=== PATIENT | female | born 1980 | race Caucasian/White ===

== ENCOUNTER → 2022-12-09 11:29 | Outpatient (CLI) | payer BC, SELFPAY ==
--- NOTE | ~2022-12-09 | MM_ITS ---
EXAMINATION: MM screening [facility] BI w samara HISTORY: Screening mammogram TECHNIQUE: Craniocaudal and mediolateral oblique 3-D tomosynthesis images were obtained and synthetic 2-D images were generated. CAD analysis was submitted and interpreted. COMPARISON: None, baseline BREAST PARENCHYMAL COMPOSITION: The breasts are extremely dense, which lowers the sensitivity of mamm ography. FINDINGS: There are obscured masses bilaterally in the upper outer quadrants of the breasts. No suspi cious calcification or architectural distortion are identified. IMPRESSION: 1. Obscured bilateral breast masses. 2. Additional mammographic views and possible breast ultrasound are recommended. BI-RADS Category 0: Incomplete: Needs additional imaging evaluation. Reviewed, dictated and finalized at location A. 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 Obscured bilateral breast masses. 2. Additional mammographic views and possible breast ultrasound are recommended . BI-RADS Category 0: Incomplete: Needs additional imaging evaluation.
== END ==
PROVIDERS: PCP Family Medicine; Visit Provider Obstetrics & Gynecology
DX: Z12.31 Encounter for screening mammogram for malignant neoplasm of breast (principal); N63.20 Unspecified lump in the left breast, unspecified quadrant; N63.10 Unspecified lump in the right breast, unspecified quadrant
CPT/HCPCS: 77063; 77067

== ENCOUNTER → 2023-01-03 08:20 | Outpatient (CLI) | payer BC, SELFPAY ==
--- NOTE | ~2023-01-03 | MMUS_ITS ---
EXAMINATION: MM diagnostic [facility] BI w samara, US breast BI complete HISTORY: Scattered bilateral breast masses reported on 12/09/2022 bilateral screening mammogram examination TECHNIQUE: Additional 3-D tomosynthesis images of both breasts were performed and synthetic 2-D image s were generated. CAD analysis was submitted and interpreted. High resolution complete bilateral [address]isa st ultrasound examination including all 4 quadrants and subareolar areas was performed. COMPARISON: 12/09/2022 bilateral screening mammogram BREAST PARENCHYMAL COMPOSITION: The breasts are extremely dense, which lowers the sensitivity of mamm ography. FINDINGS: MAMMOGRAPHIC FINDINGS: Circumscribed low-density approximately 3 cm mass is noted centimeters slightly left of mid sagittal plane in the upper outer quadrant of the left breast posteriorly. Circumscribed approximately 1.4 cm mass is noted posteriorly in the outer mid right breast. The extremely dense stroma may obscure additional breast masses. Bilateral complete breast ultrasound examination was performed. ULTRASOUND: There are multiple bilateral breast cysts, circumscribed, with through transmission, without internal vascularity, the largest on the right measuring up to 6.5 x 18 mm, the largest on the left at 12:00 4 cm from the nipple, measuring up to 12 x 23 mm. IMPRESSION: 1. Bilateral benign breast cysts; no mammographic evidence of malignancy 2. Routine annual mammographic screening is recommended BI-RADS Category 2: Benign finding(s). Reviewed, dictated and finalized at location A. IMPRESSION: 1. Bilateral benign breast cysts; no mammographic evidence of malignancy 2. Routine annual mammographic screening is recommended BI-RADS Category 2: Benign finding(s).
== END ==
PROVIDERS: PCP Obstetrics & Gynecology; Visit Provider Obstetrics & Gynecology
DX: R92.8 Other abnormal and inconclusive findings on diagnostic imaging of breast (principal)
CPT/HCPCS: 76641; 77062; 77066; G0279

== ENCOUNTER 2023-01-14 00:40 | Day surgery (SDC) | payer BC, SELFPAY ==
[2023-01-07 11:04] VITALS: BMI 22.6
--- NOTE | 2023-01-07 11:10 | PC.NURSE ---
Report to the Outpatient Waiting Room, entrance under the green pavilion located off [facility], at time 1130 on date 01/14/23. Planned Procedure Time: 1330. Time changes happen often and if your time is changed the preop area will call you the afternoon before. - You and your visitor will be asked to self-screen and do not enter if you have any COVID symptoms. - A mask is optional within the hospital at this time. Patients may have clear liquids (water, carbonated beverages, clear teas, apple juice) until 3 hours prior to surgery with a maximum of 20 ounces. - No food from midnight until time of surgery Take the following medications with a SIP of water the morning of surgery: ATENOLOL, LEXAPRO, METHIMAZOLE DO NOT STOP ANY OF YOUR OTHER PRESCRIPTION MEDICATIONS PRIOR TO SURGERY EXCEPT THE FOLLOWING Medications to discontinue per physician: VITAMINS/SUPPLEMENTS Date to take last dose: 01/10/23 Please no make-up, nail kinyarwanda, hairspray, perfume, deodorant, or body powder the day of surgery. No jewelry (including any body piercings) or valuables the day of surgery, leave them at home. Please take a shower or bath the night before, or the morning of, surgery with an antibacterial soap. Wear comfortable, loose fitting clothing. - Jewelry must be removed prior to entering the operating room. Rings and piercings that are not removed may be cut off. - The hospital will not accept responsibility for valuables. - Please leave all valuables, including medications, at home the day of surgery. If you are going home after surgery, a licensed dumpcart driver must drive you home. - NO public transportation without another adult if you receive anesthesia. - We recommend that an adult stay with you for 24 hours following discharge. - We also recommend that you do not drive, make important decision, drink alcoholic beverages, or take any drugs that were not prescribed by your health care provider for at least 24 hours after your discharge time. Follow any additional instructions given to you from your surgeon. If you or anyone in your household have experienced Covid symptoms in the past week, please notify your surgeon or the nurse liaison at the phone number below for possible testing. Telephone instructions given to PT - FATUMA QUINN and asked if any additional questions and then verbalized understanding. Patient advised to call surgeon office or pre surgery nurse liaison [phone] if any additional questions.
--- NOTE | 2023-01-11 13:15 | PM.IMHP ---
H&P: HPI History of Present Illness Date/Time: 01/11/23 13:15 Chief Complaint: Lesions and vaginal area Narrative: A 42-year-old female admitted for CO2 laser of the vaginal HPV. It is present on the mons pubis and the labia. Biopsies have been negative in the past and medical treatment of been unsatisfactory. [facility] Family History Family History Father Hypertension Family history of elevated blood lipids Mother Hypertension Social History Social History Smoking status: Never smoker Alcohol intake: current Drinks per week: 4 Substance use: never Substance use type: does not use Living arrangements: with family Spiritual care concerns: No Meds Home Medications and Allergies Home Medications Medication Instructions Recorded Confirmed Type cetirizine 10 mg tablet 10 mg PO .COMPLEX #500 tabs 08/21/19 01/07/23 Rx ferrous sulfate 325 mg (65 mg See Rx Instructions .Route 10/19/21 01/07/23 Rx iron) tablet (FeroSul) .COMPLEX #270 tabs escitalopram oxalate 10 mg tablet See Rx Instructions PO DAILY #90 05/06/22 01/07/23 Rx tabs atenolol 25 mg tablet 25 mg PO DAILY #30 tabs 12/20/22 01/07/23 Rx methimazole 5 mg tablet 5 mg PO BID #60 tabs 12/20/22 01/07/23 Rx Allergies Allergy/AdvReac Type Severity Reaction Status Date / Time No Known Allergies Allergy Unverified 01/07/23 11:03 Exam Const: General: cooperative, healthy appearing, comfortable and well groomed Nutritional Appearance: average body habitus Orientation/consciousness: oriented to person, oriented to place and oriented to time Resp: Effort & Inspection: normal respiratory effort Cardio: Rate: regular rate Rhythm: regular rhythm Heart sounds: S1 normal heart sound present and S2 normal heart sound present GI: Inspection: normal to inspection : Speculum Exam - Vagina: normal appearance of the vagina (Multiple condyloma acuminata are present) Speculum Exam - Cervix: Cervical os closed Bimanual exam- vagina & uterus: uterine size normal Bimanual Exam- Adnexa, other: normal adnexae Assessment and Plan Assessment and plan (1) Condyloma acuminata: Code(s): A63.0 - Anogenital (venereal) warts Status: Acute Plan CO2 laser destruction of condyloma
--- NOTE | 2023-01-13 10:44 | WPDANESEPPF ---
Anes - Initial Pre Proc Eval Procedure: Operation Date: 01/14/23 13:30 Proposed Procedures p CO2 Laser of Condyloma of Mons Pubis and Labia - Alfred Campbell MD Date/Time: 01/13/23 10:44 Surgeon: Alfred Campbell MD Pre Op Diagnosis: mons pubis Labia Condyloma Patient Data Age: 42 Gender: F Height: 1.68 m Weight: 63.5 kg Allergies Allergy/AdvReac Type Severity Reaction Status Date / Time No Known Allergies Allergy Unverified 01/07/23 11:03 Home Medications Medication Instructions Recorded Confirmed Type cetirizine 10 mg tablet 10 mg PO .COMPLEX #500 tabs 08/21/19 01/07/23 Rx ferrous sulfate 325 mg (65 mg See Rx Instructions .Route 10/19/21 01/07/23 Rx iron) tablet (FeroSul) .COMPLEX #270 tabs escitalopram oxalate 10 mg tablet See Rx Instructions PO DAILY #90 05/06/22 01/07/23 Rx tabs atenolol 25 mg tablet 25 mg PO DAILY #30 tabs 12/20/22 01/07/23 Rx methimazole 5 mg tablet 5 mg PO BID #60 tabs 12/20/22 01/07/23 Rx Results Review: All pre-operative results and documents have been reviewed as part of the pre-operative evaluation. [facility] Past Medical History Medical History (Updated 01/13/23 @ 10:45 by Marcos Odom DO) Graves disease Family History Family History Father Hypertension Family history of elevated blood lipids Mother Hypertension Social History Social History Smoking status: Never smoker Alcohol intake: current Drinks per week: 4 Substance use: never Substance use type: does not use Living arrangements: with family Spiritual care concerns: No Anes - Eval Final PreProcedure Day of Procedure 01/13/23 10:44 Patient weight: normal Heart: regular rate and rhythm Lungs: clear to auscultation Airway: Mallampati scale class II Neurological: alert and oriented Last oral intake: >/= 8 hours ASA classification: II Emergent: no Anesthetic plan: proceed Anesthesia type and monitoring: general LMA and standard monitoring Results Review: All pre-operative results and documents have been reviewed as part of the pre-operative evaluation. Informed Consent: The patient's anesthetic plan and its attendant risks and benefits were discussed with the patient/family/POA. Questions were solicited and answers provided to the satisfaction of the patient/family/POA.
--- NOTE | 2023-01-14 06:24 | WPDHPUPDATE1 ---
History and Physical Update Update Date/Time: 01/14/23 06:24 History and Physical has been reviewed, including an updated exam of the patient. There are NO changes in the patient's condition. Risks, benefits, and alternatives have been discussed and questions answered. Patient agrees to proceed with procedure.
[2023-01-14 11:36] VITALS: BP 121/71; PULSE 71; RESP 20; TEMP 36.3; O2SAT 99
== END 2023-01-14 12:02 | disposition home or self-care (01) ==
PROVIDERS: PCP Family Medicine; Visit Provider Obstetrics & Gynecology
DX: A63.0 Anogenital (venereal) warts (principal); Z53.9 Procedure and treatment not carried out, unspecified reason
CPT/HCPCS: 99211; G0463

== ENCOUNTER 2023-02-11 01:07 | Day surgery (SDC) | payer BC, SELFPAY ==
[2023-02-03 14:34] VITALS: BMI 22.6
--- NOTE | 2023-02-03 14:38 | PC.NURSE ---
Report to the Outpatient Waiting Room, entrance under the green pavilion located off [facility], at time 1130 on date 02/11/23. Planned Procedure Time: 1330. Time changes happen often and if your time is changed the preop area will call you the afternoon before. - You and your visitor will be asked to self-screen and do not enter if you have any COVID symptoms. - A mask is optional within the hospital at this time. Patients may have clear liquids (water, carbonated beverages, clear teas, apple juice) until 3 hours prior to surgery with a maximum of 20 ounces. - No food from midnight until time of surgery Take the following medications with a SIP of water the morning of surgery: LEXAPRO, METHIMAZOLE DO NOT STOP ANY OF YOUR OTHER PRESCRIPTION MEDICATIONS PRIOR TO SURGERY EXCEPT THE FOLLOWING Medications to discontinue per physician: VITAMINS/SUPPLEMENTS Date to take last dose: 02/07/23 Please no make-up, nail cameroonian, hairspray, perfume, deodorant, or body powder the day of surgery. No jewelry (including any body piercings) or valuables the day of surgery, leave them at home. Please take a shower or bath the night before, or the morning of, surgery with an antibacterial soap. Wear comfortable, loose fitting clothing. - Jewelry must be removed prior to entering the operating room. Rings and piercings that are not removed may be cut off. - The hospital will not accept responsibility for valuables. - Please leave all valuables, including medications, at home the day of surgery. If you are going home after surgery, a licensed vacuum truck driver must drive you home. - NO public transportation without another adult if you receive anesthesia. - We recommend that an adult stay with you for 24 hours following discharge. - We also recommend that you do not drive, make important decision, drink alcoholic beverages, or take any drugs that were not prescribed by your health care provider for at least 24 hours after your discharge time. Follow any additional instructions given to you from your surgeon. If you or anyone in your household have experienced Covid symptoms in the past week, please notify your surgeon or the nurse liaison at the phone number below for possible testing. Telephone instructions given to PT - FATUMA QUINN and asked if any additional questions and then verbalized understanding. Patient advised to call surgeon office or pre surgery nurse liaison [phone] if any additional questions.
--- NOTE | 2023-02-09 07:53 | P.HP_ITS ---
H&P: HPI History of Present Illness Date/Time: 02/09/23 07:53 Chief Complaint: condyloma acuminata Narrative: sh pleasant 42-year-old female with multiple condyloma acuminata which has been refractory to treatment in the office. She is admitted for CO2 laser destruction [facility] Past Medical History Medical History Graves disease Family History Family History Father Hypertension Family history of elevated blood lipids Mother Hypertension Social History Social History Smoking status: Never smoker Alcohol intake: current Drinks per week: 4 Substance use: never Substance use type: does not use Living arrangements: with family Spiritual care concerns: No Meds Home Medications and Allergies Home Medications Medication Instructions Recorded Confirmed Type cetirizine 10 mg tablet 10 mg PO .COMPLEX #500 tabs 08/21/19 02/03/23 Rx ferrous sulfate 325 mg (65 mg See Rx Instructions .Route 10/19/21 02/03/23 Rx iron) tablet (FeroSul) .COMPLEX #270 tabs escitalopram oxalate 10 mg tablet See Rx Instructions PO DAILY #90 05/06/22 02/03/23 Rx tabs methimazole 5 mg tablet 15 mg PO BID 02/03/23 02/03/23 History Allergies Allergy/AdvReac Type Severity Reaction Status Date / Time No Known Allergies Allergy Unverified 02/03/23 14:34 Exam Const: General: cooperative, healthy appearing and comfortable Nutritional Appearance: average body habitus Orientation/consciousness: oriented to person, oriented to place and oriented to time HENMT: Head: normal to inspection Resp: Effort & Inspection: normal respiratory effort Cardio: Rate: regular rate Rhythm: regular rhythm Heart sounds: S1 normal heart sound present and S2 normal heart sound present GI: Inspection: normal to inspection : External Female Exam: normal external appearance ( multiple condyloma acuminata noted) Speculum Exam - Cervix: normal appearance of the cervix Bimanual exam- vagina & uterus: non-tender Bimanual Exam- Adnexa, other: normal adnexae Assessment and Plan Assessment and plan (1) Condyloma acuminata: Code(s): A63.0 - Anogenital (venereal) warts Status: Acute Plan CO2 laser of condyloma
[2023-02-11] VITALS (8 sets, daily range): BP systolic 100–130; BP diastolic 56–84; PULSE 57–79; RESP 14–16; TEMP 36.5–36.7; O2SAT 97–100
--- NOTE | 2023-02-11 06:23 | WPDHPUPDATE1 ---
History and Physical Update Update Date/Time: 02/11/23 06:23 History and Physical has been reviewed, including an updated exam of the patient. There are NO changes in the patient's condition. Risks, benefits, and alternatives have been discussed and questions answered. Patient agrees to proceed with procedure.
[2023-02-11 12:36] LABS: Hematocrit 40.4 % (37.0-47.0); Hemoglobin 13.6 g/dL (12.0-15.0)
--- NOTE | 2023-02-11 13:15 | WPDANESEPPF ---
Anes - Initial Pre Proc Eval Procedure: Operation Date: 02/11/23 13:30 Proposed Procedures p CO2 Laser of Condyloma of Mons Pubis and Labia - Alfred Campbell MD Date/Time: 02/11/23 13:15 Surgeon: Alfred Campbell MD Pre Op Diagnosis: Condyloma Mons Pubis and Labia Patient Data Age: 42 Gender: F Height: 1.68 m Weight: 62.6 kg Last Vital Signs Temp 97.7 F 02/11/23 12:09 Pulse 72 02/11/23 12:09 Resp 14 02/11/23 12:09 BP 117/68 02/11/23 12:09 Pulse Ox 97 02/11/23 12:09 O2 Del Method Room Air 02/11/23 12:09 Allergies Allergy/AdvReac Type Severity Reaction Status Date / Time No Known Allergies Allergy Unverified 02/03/23 14:34 Home Medications Medication Instructions Recorded Confirmed Type cetirizine 10 mg tablet 10 mg PO .COMPLEX #500 tabs 08/21/19 02/03/23 Rx ferrous sulfate 325 mg (65 mg See Rx Instructions .Route 10/19/21 02/03/23 Rx iron) tablet (FeroSul) .COMPLEX #270 tabs escitalopram oxalate 10 mg tablet See Rx Instructions PO DAILY #90 05/06/22 02/03/23 Rx tabs methimazole 5 mg tablet 15 mg PO BID 02/03/23 02/03/23 History hydrocodone 5 mg-acetaminophen 325 1 tablet PO Q4H PRN pain #14 tabs 02/11/23 Rx mg tablet Laboratory Tests 02/11/23 12:21 Hgb 13.6 g/dL (12.0-15.0) Hct 40.4 % (37.0-47.0) Patient hx anesthesia problems: none Family hx anesthesia problems: none Results Review: All pre-operative results and documents have been reviewed as part of the pre-operative evaluation. [facility] Past Medical History Medical History Graves disease Family History Family History Father Hypertension Family history of elevated blood lipids Mother Hypertension Social History Social History Smoking status: Never smoker Alcohol intake: current Drinks per week: 4 Substance use: never Substance use type: does not use Living arrangements: with family Spiritual care concerns: No Anes - Eval Final PreProcedure Day of Procedure 02/11/23 13:15 Patient weight: normal Heart: regular rate and rhythm Lungs: clear to auscultation Airway: Mallampati scale class II Neurological: alert and oriented Last oral intake: >/= 8 hours ASA classification: II Emergent: no Anesthetic plan: proceed Anesthesia type and monitoring: general LMA and standard monitoring Results Review: All pre-operative results and documents have been reviewed as part of the pre-operative evaluation. Informed Consent: The patient's anesthetic plan and its attendant risks and benefits were discussed with the patient/family/POA. Questions were solicited and answers provided to the satisfaction of the patient/family/POA.
[2023-02-11] MEDS: SILVER SULFADIAZINE 1% CR 50 GM JAR (*BKC) 1 APPLIC TOPICAL (13:44)
--- NOTE | 2023-02-11 13:52 | W.PM.PROC2 ---
Procedure Note - Detailed Date of Procedure 02/11/23 Pre-op Diagnosis Condyloma Mons Pubis and Labia Post-op Diagnosis Same Procedure Performed CO2 laser of multiple condyloma acuminata Surgeon Alfred Campbell MD Anesthesia General Indications this is a 42-year-old female with multiple condyloma acuminata on the mons pubis Findings 35-40 condylomata on the mons pubis Description of Procedure patient is prepped draped in normal sterile fashion placed in dorsal lithotomy position under excellent LMA anesthesia the for pelvic region was surrounded by moistened wet laps. Each of condylomata the Chavez pubis area were burned to the 2nd layer with complete destruction. Once this was complete there were treated with silver a D cream. Blood loss was estimated at0cc all sponge, needle, instrument counts were correct. Estimated Blood Loss 0 Drains No Packing No Pathology None sent Complications No immediate complications Condition Stable Disposition PACU
[2023-02-11] MEDS: LACTATED RINGERS 1,000 ML 30 ML IV CONT ×2 (13:57→14:34)
== END 2023-02-11 15:40 | disposition home or self-care (01) ==
PROVIDERS: Anesthesiology; PCP Family Medicine; Visit Provider Obstetrics & Gynecology
PROC: (CPT 56515; principal; 2023-02-11 13:30)
DX: A63.0 Anogenital (venereal) warts (principal); E05.00 Thyrotoxicosis with diffuse goiter without thyrotoxic crisis or storm
CPT/HCPCS: 56515; 36415; 85014; 85018; A9270; J1100; J2250; J2405; J2704; J3010; J7120

== ENCOUNTER 2024-02-01 15:29 | Outpatient (CLI) | payer BC, SELFPAY ==
--- NOTE | ~2024-02-01 | MM_ITS ---
EXAMINATION: MM screening [facility] BI w samara HISTORY: Screening TECHNIQUE: Craniocaudal and mediolateral oblique 3-D tomosynthesis images were obtained and synthetic 2-D images were generated. CAD analysis was submitted and interpreted. COMPARISON: Comparison to multiple prior studies sequentially, with oldest reviewed study dated 06/2023. BREAST PARENCHYMAL COMPOSITION: Dense: The breasts are extremely dense, which lowers the sensitivity of mammography. FINDINGS: There is no evidence of suspicious mass, calcification, or architectural distortion to sugg est malignancy in either breast. There has been no suspicious interval change. IMPRESSION: 1. No mammographic evidence of malignancy. 2. Recommend routine screening mammography in one year. BI-RADS Category 1: Negative Reviewed, dictated and finalized at location B.
== END 2024-02-01 15:30 ==
LOC: MICIMG 15:30
PROVIDERS: PCP Obstetrics & Gynecology; Visit Provider Obstetrics & Gynecology
DX: Z12.31 Encounter for screening mammogram for malignant neoplasm of breast (principal)
CPT/HCPCS: 77063; 77067

== ENCOUNTER 2024-12-14 11:45 | Outpatient (CLI) | payer BC, SELFPAY ==
--- NOTE | ~2024-12-14 | XR_ITS ---
Right Hand Technique: PA, oblique, and lateral views were obtained. Clinical History: Injury Findings: No acute fracture or dislocation is seen. Osseous alignment is anatomic. Joint spaces are p reserved. Soft tissues are unremarkable. Impression: Unremarkable right hand. Reviewed, dictated and finalized at location M. Impression: Unremarkable right hand.
== END 2024-12-14 11:46 | disposition home or self-care (01) ==
LOC: GOSHIMG 11:45
PROVIDERS: PCP Family Medicine; Visit Provider Family Medicine
DX: S69.91XA Unspecified injury of right wrist, hand and finger(s), initial encounter (principal); X58.XXXA Exposure to other specified factors, initial encounter
CPT/HCPCS: 73130

== ENCOUNTER 2025-02-06 15:48 | Outpatient (CLI) | payer BC, SELFPAY ==
--- NOTE | ~2025-02-06 | MM_ITS ---
EXAMINATION: MM screening [facility] BI w samara HISTORY: Screening TECHNIQUE: Craniocaudal and mediolateral oblique 3-D tomosynthesis images were obtained and synthetic 2-D images were generated. CAD analysis was submitted and interpreted. COMPARISON: Comparison to multiple prior studies sequentially, with oldest reviewed study dated 06/2023. BREAST PARENCHYMAL COMPOSITION: Dense: The breasts are extremely dense, which lowers the sensitivity of mammography. FINDINGS: There is a mass in the upper central aspect of the right breast, middle third. There is an obscured mass in the upper central aspect of the left breast, posterior third. There are no suspiciou s calcifications or distortion. IMPRESSION: 1. Bilateral breast masses. 2. Additional mammographic views and possible breast ultrasound are recommended. BI-RADS Category 0: Incomplete: Needs additional imaging evaluation. Reviewed, dictated and finalized at location A. IMPRESSION: 1. Bilateral breast masses. 2. Additional mammographic views and possible breast ultrasound are recommended . BI-RADS Category 0: Incomplete: Needs additional imaging evaluation.
== END 2025-02-06 15:49 | disposition home or self-care (01) ==
LOC: MICIMG 15:50
PROVIDERS: PCP Family Medicine; Visit Provider Obstetrics & Gynecology
DX: Z12.31 Encounter for screening mammogram for malignant neoplasm of breast (principal); R92.8 Other abnormal and inconclusive findings on diagnostic imaging of breast
CPT/HCPCS: 77063; 77067

== ENCOUNTER 2025-03-12 08:47 | Outpatient (CLI) | payer BC, SELFPAY ==
--- NOTE | ~2025-03-12 | MMUS_ITS ---
EXAMINATION: MM diagnostic [facility] BI w samara, US breast BI complete HISTORY: Bilateral breast masses. TECHNIQUE: Additional 3-D tomosynthesis images of the breasts were performed and synthetic 2-D images were generated. CAD analysis was submitted and interpreted. High resolution bilateral complete breas t ultrasound was performed. COMPARISON: Comparison to multiple prior studies sequentially, with oldest reviewed study dated 06/2023. BREAST PARENCHYMAL COMPOSITION: Dense: The breasts are extremely dense, which lowers the sensitivity of mammography. FINDINGS: MAMMOGRAPHIC FINDINGS: Stable scattered obscured bilateral breast masses most of which are low density, likely benign. ULTRASOUND: Complete US of all 4 quadrants of the breast/s and retroareolar region was reviewed. Multiple bilater al simple cyst of the breast, largest on the right measuring 2.8 cm at 9:00, 7 cm from the nipple and at 10:00, 7 cm from the nipple measuring 3.1 cm. Largest on the left measures 4.5 cm at 12:00, 5 cm from the nipple. No suspicious masses in either breast to suggest malignancy. IMPRESSION: 1. No evidence for malignancy in either breast. Benign findings. 2. Routine yearly screening mammogram and regular clinical breast examination are recommended. BI-RADS Category 2: Benign finding(s). Reviewed, dictated and finalized at location B. IMPRESSION: 1. No evidence for malignancy in either breast. Benign findings. 2. Routine yearly screening mammogram and regular clinical breast examination a re recommended. BI-RADS Category 2: Benign finding(s).
== END 2025-03-12 08:48 | disposition home or self-care (01) ==
LOC: MICIMG 08:48
PROVIDERS: PCP Obstetrics & Gynecology; Visit Provider Obstetrics & Gynecology
DX: R92.8 Other abnormal and inconclusive findings on diagnostic imaging of breast (principal)
CPT/HCPCS: 76641; 77062; 77066; G0279